=== PATIENT | female | born 1990 | race Caucasian/White ===

== ENCOUNTER 2021-07-18 09:20 | Emergency (ER) | payer MEDICARE, SELFPAY ==
[2021-07-18 09:33] VITALS: BP 153/94; PULSE 98; RESP 18; TEMP 36.8; O2SAT 98; BMI 28.3
--- NOTE | 2021-07-18 09:53 | CT_ITS ---
WS: [id number] CT HEAD NONCONTRAST HISTORY: headache, prior surgeries TECHNIQUE: Contiguous axial imaging performed through the brain in 2.5 mm imaging. Bone and soft tiss ue windows. Sagittal and coronal reformats reviewed. All CT scans at [facility] use at ast one of these dose optimization techniques: automated exposure control; mA and/or kV adjustment pe r patient size (includes targeted exams where dose is matched to clinical indication); or iterative r econstruction. DLP: 939.34 mGy.cm COMPARISON: None available. No acute intracranial hemorrhage, midline shift or mass effect. Mild atrophy. Prior infarct involving the external capsule on the RIGHT with extension to the RIGHT c audate. There is an additional small lacunar infarct or prominent perivascular space involving the po sterior RIGHT parietal lobe. Additional lacunar infarct in the RIGHT thalamus. Ventricles: Normal size with no hydrocephalus. Paranasal sinuses: As visualized are clear. Mastoid air cells: Well pneumatized. Calvarium and scalp: Skull is intact with no soft tissue edema or swelling. CT/CT head wo con* [id number] IMPRESSION: 1. No acute intracranial hemorrhage or edema. 2. Prior infarcts along the RIGHT external capsule, caudate head and RIGHT star lamus.
== END 2021-07-18 13:25 | disposition left against medical advice (07) ==
PROVIDERS: Emergency Provider Emergency Medicine; PCP Family Medicine
DX: R51.9 Headache, unspecified (principal); Z53.21 Procedure and treatment not carried out due to patient leaving prior to being seen by health care provider
CPT/HCPCS: 70450

== ENCOUNTER 2021-07-25 13:02 | Outpatient (CLI) | payer MEDICARE, SELFPAY ==
--- NOTE | 2021-07-25 13:00 | MR_ITS ---
WS: [id number] MRI HEAD WITH CONTRAST TECHNIQUE: Sagittal T1, T2 axial, T2 axial FLAIR, axial susceptibility weighted imaging, axial diffus ion weighted images, and coronal T2 images were obtained. Pre and post-T1 axial and post T1 coronal i mages. ADC and FSPGR images. CLINICAL INFORMATION: R25.1 - Tremor, unspecified COMPARISON: Head CT July 18, 2021 FINDINGS: No evidence of restricted diffusion to suggest acute ischemia. Ventricular system and basal cisterns are patent. Evidence of chronic ischemia in the right mantilla radiata extending into the internal capsule and exte rnal capsule with associated encephalomalacia and gliosis. This has a chronic long-standing appearanc e. No other suspicious intracranial signal abnormalities. Normal posterior fossa. Normal vascular pippa w voids at the skull base. No extra-axial fluid collections. No evidence of mass or mass effect. Para nasal sinuses and mastoid air cells are well aerated. Normal posterior nasopharynx. Visualized orbits are normal. Normal optic chiasm and pituitary infundibulum. Cavernous sinuses and M kale's cave are normal in appearance. Temporal lobes and hippocampal formations are normal in appear ance. No hemosiderin on susceptibly weighted images. No abnormal intracranial enhancement. Normal visualize d dural venous sinuses. MR/MR head wo/w con [id number] IMPRESSION: 1. No evidence of restricted diffusion to suggest acute ischemia. 2. Chronic infarct with encephalomalacia and gliosis involving the right coron a radiata extending into the right internal capsule has a long-standing chronic appearance. 3. No other suspicious intracranial signal normalities. 4. No abnormal intracranial enhancement. 5. No hemosiderin on susceptibly weighted images. 6. No other significant findings.
[2021-07-25] MEDS: gadobenate dimeglumine 20 mL vial IV (13:53)
== END 2021-07-25 13:03 | disposition home or self-care (01) ==
PROVIDERS: PCP Registered Nurse; Visit Provider Registered Nurse
DX: R25.1 Tremor, unspecified (principal); I63.9 Cerebral infarction, unspecified; G93.89 Other specified disorders of brain
CPT/HCPCS: 70553; A9577

== ENCOUNTER → 2021-07-29 09:18 | Outpatient (BNVA) | payer MEDICARE, SELFPAY | PROVIDERS: PCP Registered Nurse; Visit Provider Registered Nurse | DX: G24.9 Dystonia, unspecified (principal) | CPT/HCPCS: 80053; 80061; 84443; 85025; 85651; 86038; 86141 ==

== ENCOUNTER 2021-10-06 10:35 | Emergency (ER) | payer MEDICARE, SELFPAY ==
[2021-10-06 10:47] VITALS: BP 151/89; PULSE 74; RESP 16; TEMP 36.9; O2SAT 99; BMI 28.2
--- NOTE | 2021-10-06 11:01 | W.ED.NEUROSD ---
HPI - Neuro Symptoms/Deficit General: Chief Complaint: Neuro Symptoms/Deficit Stated Complaint: TREMORS, SEIZURE LIKE ACTIVITY Time Seen by Provider: 10/06/21 10:39 History of Present Illness: HPI Narrative: 30-year-old female presents emergency room via EMS. She has had tremors for several months. She has intermittent tremors in her neck with rhythmic contractions with slight turning to the right and sidebending to the left. She also has rhythmic leg movements in both upper extremities. She was evaluated at other hospitals as well as at neurology. They had thought she was having what sounds like a partial complex seizure and start her on Trileptal. She has a history of brain injury at . Since starting the Trileptal she is actually noticed an increase in her tremors was before it was only on one side now it is on both sides. She denies any other problems at this time. She not had any fever sweats chills chest pain abdominal pain dysuria urgency or frequency vomiting or diarrhea. Onset (ago): month(s) Location: left arm and right arm Severity: mild Relieving factors: none Exacerbating factors: none Context: change in medication On Anticoagulants: No Associated symptoms: Deny chest pain, cough, diaphoresis, fevers/chills, headache(s), anorexia, malaise, nausea, seizures, short of breath, syncope, tingling, vertigo, vomiting or weakness Treatments Prior to Arrival: none Review of Systems Const: Denies: malaise or diaphoresis ENMT: Denies: throat pain, ear or mastoid pain, nasal discharge or nasal congestion Card: Denies: chest pain or syncope Resp: Denies: dyspnea, productive cough or non-productive cough GI: Denies: nausea or vomiting : Denies: flank pain, difficulty voiding, dysuria, urinary frequency or urinary urgency Skin/Breast: Denies: rash or pruritus Neuro: Denies: headache(s) or vertigo PFSH ED PFSH: Medical History Basal ganglia stroke right side Depression with anxiety Surgical History History of hysterectomy for benign disease still has right ovary Family History Mother Diabetes Social History Quit status (tobacco): quit date established Planned quit date: 03/24/21 Alcohol intake: never Adopted: No Caregiver/support person: No Lives independently: No service: No Current occupational status: unemployed Sexually active: Yes Current gender identity: Female Physical Exam Const: COMMON NORMALS: no acute distress GENERAL APPEARANCE: cooperative and comfortable ORIENTATION/CONSCIOUSNESS: Yes awake, Yes oriented to person, Yes oriented to place and Yes oriented to time HENMT: COMMON NORMALS: normocephalic, atraumatic and hearing grossly normal bilaterally HEAD & SCALP: normocephalic and atraumatic Neck/C-Spine: COMMON NORMALS: no JVD Resp: COMMON NORMALS: normal respiratory effort, No retractions, No use of accessory muscles and clear to auscultation bilaterally AUSCULTATION: clear to auscultation bilaterally Cardio: COMMON NORMALS: no JVD, regular rate, regular rhythm and No murmurs present (Cardio) RATE: regular rate RHYTHM: regular rhythm GI: COMMON NORMALS: Soft to palpation and No hepatosplenomegaly present AUSCULTATION: Yes normoactive bowel sounds PALPATION: Yes Soft to palpation, No Tenderness to palpation present (GI), No Guarding due to palpation present (GI) and Yes No hepatosplenomegaly present Extremity: COMMON NORMALS: normal to inspection, capillary refill normal, no clubbing, cyanosis or edema, no calf tenderness and no pedal edema Neuro: SENSORIUM/ORIENTATION: Yes oriented to person, Yes oriented to place and Yes oriented to time Skin: COMMON NORMALS: no rashes or lesions noted GENERAL SKIN EXAM: no rashes or lesions noted Course Vital Signs: Vital signs: Vital Signs Temperature 98.5 F 10/06/21 13:48 Pulse Rate 67 10/06/21 13:48 Respiratory Rate 17 10/06/21 13:48 Blood Pressure 130/69 10/06/21 13:48 Pulse Oximetry 98 10/06/21 13:48 MDM - Neuro Symptoms/Deficit MDM Narrative: Medical decision making narrative: Called and discussed with the neurology clinic she seen previously. I went to discuss with the patient discharge instructions she stated she is not started increasing her oxcarbazepine. She was taking 300 mg twice a day. She was supposed to go to 600 twice a day but she felt like since she started her symptoms got worse so she had not gone out. Initially she did told me that she was doing 600 mg twice a day. We did not ever go ahead and get make the increase to 600 twice daily. Follow-up with her regular neurology clinic next week return if has problems with Lab Data: Labs: Lab Results 10/06/21 10/06/21 10/06/21 11:49 11:49 11:49 WBC 7.2 10^3/uL 10^3/ uL (4.0-10.0) RBC 3.86 10^6/uL L 10 ^6/uL (4.1-5.3) Hgb 12.3 g/dL g/dL (11.5-15.3) Hct 36.0 % L % (37.0-47.0) MCV 93.3 fl fl (81-99) MCH 31.9 pg pg (28.0-34.0) MCHC 34.2 g/dL g/dL (30.0-36.0) RDW 12.5 % % (12.1-15.1) Plt Count 234 10^3/cmm 10^3 /cmm (130-400) MPV 9.6 fL fL (7.4-10.4) Neut % (Auto) 67.0 % % Lymph % (Auto) 20.7 % % Peach % (Auto) 9.4 % % Eos % (Auto) 2.1 % % Baso % (Auto) 0.7 % % Neut # (Auto) 4.79 10^3/uL 10^3 /uL (1.8-7.7) Lymph # (Auto) 1.5 10^3/uL 10^3/ uL (0.8-4.8) Peach # (Auto) 0.7 10^3/uL 10^3/ uL (0.2-0.9) Eos # (Auto) 0.2 10^3/uL 10^3/ uL (0.0-0.8) Baso # (Auto) 0.1 10^3/uL 10^3/ uL (0.0-0.1) Nucleated RBC % (a uto) 0 % % Nucleated RBCs # 0.0 /100WBC /100W BC Sodium 132 mmol/L L mmol /L (136-145) Potassium 4.2 mmol/L mmol/L (3.5-5.1) Chloride 99 mmol/L mmol/L (98-107) Carbon Dioxide 24 mmol/L mmol/L (22-29) Anion Gap 13.2 (5-19) BUN 8 mg/dL mg/dL (6-20) Creatinine 0.7 mg/dL mg/dL (0.5-0.9) GFR Calculation 97.6 mL/min mL/mi n (90-130) Glucose 92 mg/dL mg/dL (65-115) Calculated Osmolal ity 272 mOsm/kg L mOs m/kg (285-295) Calcium 8.5 mg/dL mg/dL (8.5-10.5) Magnesium 1.9 mg/dL mg/dL (1.7-2.3) Total Bilirubin 0.2 mg/dL mg/dL (0.15-1.2) AST 16 U/L U/L (0-32) ALT 13 U/L U/L (0-33) Alkaline Phosphata se 52 IU/L IU/L (35-105) Creatine Kinase 52 U/L U/L (26-192) Total Protein 6.0 g/dL L g/dL (6.6-8.7) Albumin 3.6 g/dL g/dL (3.5-5.2) Globulin 2.4 g/dL g/dL (1.3-4.6) HCG, Qual Negative (Negative) Urine Color Urine Appearance Urine pH Ur Specific Gravit y Urine Protein Urine Glucose (UA) Urine Ketones Urine Blood Urine Nitrate Urine Bilirubin Prot Sulfosalicyli c Acd Urine Urobilinogen Ur Leukocyte Vane ase 10/06/21 11:50 WBC RBC Hgb Hct MCV MCH MCHC RDW Plt Count MPV Neut % (Auto) Lymph % (Auto) Peach % (Auto) Eos % (Auto) Baso % (Auto) Neut # (Auto) Lymph # (Auto) Peach # (Auto) Eos # (Auto) Baso # (Auto) Nucleated RBC % (a uto) Nucleated RBCs # Sodium Potassium Chloride Carbon Dioxide Anion Gap BUN Creatinine GFR Calculation Glucose Calculated Osmolal ity Calcium Magnesium Total Bilirubin AST ALT Alkaline Phosphata se Creatine Kinase Total Protein Albumin Globulin HCG, Qual Urine Color Yellow (Yellow) Urine Appearance Clear (CLEAR) Urine pH 8 H (5-7) Ur Specific Gravit y 1.005 (1.005-1.030) Urine Protein Neg (Negative) Urine Glucose (UA) Norm (Normal) Urine Ketones Negative (Negative) Urine Blood Neg (Negative) Urine Nitrate Negative (Negative) Urine Bilirubin Neg (Negative) Prot Sulfosalicyli c Acd Positive (Negative) Urine Urobilinogen Norm mg/dL mg/dL (Negative) Ur Leukocyte Vane ase Negative (Negative) Discharge Plan Discharge Patient Disposition: Home Clinical Impression: Complex partial seizure Condition: Stable Prescriptions: Changed oxcarbazepine 300 mg tablet 600 mg PO BID Qty: 0 RF: 0 No Action ondansetron HCl 4 mg tablet 4 mg PO DAILY PRN (Reason: nausea and vomiting) 10 Days Qty: 10 RF: 0 baclofen 10 mg tablet 10 mg PO BID 30 Days Qty: 60 RF: 2 diazepam 5 mg tablet 5 mg PO TID PRN (Reason: dystonia) 30 Days Qty: 75 RF: 0 Prozac 20 mg capsule 20 mg PO BEDTIME RF: 0 Discharge Orders: Discharge ED (Routine); Ordered 10/06/21 Ordered By: Blas Urbano Referrals: Arlet Avila, [employer] [facility] [Primary Care Provider] - Discharge Diet: Usual diet Discharge Activity: Resume usual activity Patient Instructions: Opioid Safety Activity Restrictions/Additional Instructions: Call your neurology office to set up a follow-up appointment later this week. Coding Level of Care Code ED Blocking Machine Operator Second for Marielos Fwgallo Exam Comprehensive
[2021-10-06 11:32] VITALS: BP 127/76; PULSE 70; RESP 18; TEMP 37.2; O2SAT 98
[2021-10-06 11:59] LABS: Basophils # 0.1 10^3/uL (0.0-0.1); Basophils % 0.7 %; Eosinophils # 0.2 10^3/uL (0.0-0.8); Eosinophils % 2.1 %; Hemoglobin 12.3 g/dL (11.5-15.3); Lymphocytes # 1.5 10^3/uL (0.8-4.8); Lymphocytes % 20.7 %; Mean Corpuscular HGB Conc 34.2 g/dL (30.0-36.0); Mean Corpuscular Hemoglobin 31.9 pg (28.0-34.0); Mean Corpuscular Volume 93.3 fl (81-99); Mean Platelet Volume 9.6 fL (7.4-10.4); Monocytes # 0.7 10^3/uL (0.2-0.9); Monocytes % 9.4 %; Neutrophils # 4.79 10^3/uL (1.8-7.7); Nucleated Red Blood Cells % 0 %; Platelet Count 234 10^3/cmm (130-400); Red Blood Count 3.86 10^6/uL (4.1-5.3); Red Cell Distribution Width 12.5 % (12.1-15.1); White Blood Count 7.2 10^3/uL (4.0-10.0)
[2021-10-06 11:59] LABS: Add Urine Microscopic? NO; Charge for UA Resulting for Rev
[2021-10-06 12:06] LABS: Bilirubin Urine Neg (Negative); Blood Urine Neg (Negative); Glucose Urine UA Norm (Normal); Ketones Urine Negative (Negative); Leukocyte Esterase Urine Negative (Negative); Nitrate Urine Negative (Negative); Protein Urine Neg (Negative); Specific Gravity, Urine 1.005 (1.005-1.030); Sulfosalicylic Acid Urine Positive (Negative); Urine Appearance Clear (CLEAR); Urine Color Yellow (Yellow); Urobilinogen Urine Norm (Negative); pH Urine 8 (5-7)
[2021-10-06 12:32] LABS: Alanine Aminotransferase 13 U/L (0-33); Albumin Level 3.6 g/dL (3.5-5.2); Alkaline Phosphatase 52 IU/L (35-105); Anion Gap 13.2 (5-19); Aspartate Amino Transferase 16 U/L (0-32); Blood Urea Nitrogen 8 mg/dL (6-20); Calcium 8.5 mg/dL (8.5-10.5); Carbon Dioxide 24 mmol/L (22-29); Chloride 99 mmol/L (98-107); Creatine Phosphokinase 52 U/L (26-192); Globulin 2.4 g/dL (1.3-4.6); Glomerular Filtration Rate 97.6 mL/min (90-130); Glucose 92 mg/dL (65-115); Magnesium 1.9 mg/dL (1.7-2.3); Osmolality Calculated 272 mOsm/kg (285-295); Potassium 4.2 mmol/L (3.5-5.1); Sodium 132 mmol/L (136-145); Total Bilirubin 0.2 mg/dL (0.15-1.2)
[2021-10-06 12:37] VITALS: BP 125/68; PULSE 73; RESP 18; O2SAT 98
[2021-10-06 13:09] LABS: HCG, Serum Qual Negative (Negative)
[2021-10-06] MEDS: LORazepam 2 mg/mL INJ 1 mL 1 MG IVP (13:26)
[2021-10-06 13:48] VITALS: BP 130/69; PULSE 67; RESP 17; TEMP 36.9; O2SAT 98
[2021-10-08 21:52] LABS: Oxcarbazepine Metabolite 10.2 mcg/mL (8.0-35.0)
== END 2021-10-06 13:50 | disposition home or self-care (01) ==
PROVIDERS: Emergency Provider Family Medicine; PCP Registered Nurse
DX: G40.209 Localization-related (focal) (partial) symptomatic epilepsy and epileptic syndromes with complex partial seizures, not intractable, without status epilepticus (principal); Z86.73 Personal history of transient ischemic attack (TIA), and cerebral infarction without residual deficits; Z87.891 Personal history of nicotine dependence
CPT/HCPCS: 80053; 80183; 81003; 82550; 83735; 84703; 85025; 96374; 99283; J2060

== ENCOUNTER → 2022-08-07 15:22 | Outpatient (BNVA) | payer MEDICARE, SELFPAY | PROVIDERS: PCP Registered Nurse; Visit Provider Nurse Practitioner Women's Health | DX: N89.8 Other specified noninflammatory disorders of vagina (principal); B37.9 Candidiasis, unspecified | CPT/HCPCS: 87070; 87205 ==

== ENCOUNTER → 2022-11-26 10:33 | Outpatient (BNVA) | payer MEDICARE, SELFPAY | PROVIDERS: PCP Registered Nurse; Visit Provider Registered Nurse | DX: R39.9 Unspecified symptoms and signs involving the genitourinary system (principal) | CPT/HCPCS: 81000 ==

== ENCOUNTER → 2022-12-17 08:55 | Outpatient (BNVA) | payer MEDICARE, SELFPAY | PROVIDERS: PCP Registered Nurse; Visit Provider Registered Nurse | DX: N39.0 Urinary tract infection, site not specified (principal) | CPT/HCPCS: 81000 ==

== ENCOUNTER 2023-01-21 12:41 | Outpatient (CLI) | payer MEDICARE, SELFPAY ==
--- NOTE | 2023-01-21 13:00 | US_ITS ---
WS: [id number] RENAL ULTRASOUND URINARY BLADDER ULTRASOUND HISTORY: R10.9 - Unspecified abdominal pain COMPARISON: None available. TECHNIQUE: 2-D and color Doppler imaging of the kidney submitted. Right kidney: 9.9 cm x 4.5 cm x 4.7 cm. Normal echogenicity with no hydronephrosis or mass. Left kidney: 11.2 cm x 3.9 cm x 4.2 cm. Normal echogenicity with no hydronephrosis or mass. Aorta: Normal. Urinary Bladder: Normally distended urinary bladder. Prevoid volume 255 mL. There is no bladder wall thickening or mass. US/US renal BI* [id number] IMPRESSION: Normal renal ultrasound. Normal urinary bladder.
== END 2023-01-21 12:42 | disposition home or self-care (01) ==
PROVIDERS: PCP Registered Nurse; Visit Provider Registered Nurse
DX: R10.9 Unspecified abdominal pain (principal); R39.11 Hesitancy of micturition
CPT/HCPCS: 76770; 81000

== ENCOUNTER → 2023-02-09 15:07 | Outpatient (BNVA) | payer MEDICARE, SELFPAY | PROVIDERS: PCP Registered Nurse; Visit Provider Registered Nurse | DX: R39.9 Unspecified symptoms and signs involving the genitourinary system (principal) | CPT/HCPCS: 80053; 81000; 85025 ==

== ENCOUNTER 2024-05-19 12:57 | Outpatient (CLI) | payer MEDICARE, SELFPAY ==
--- NOTE | 2024-05-19 13:06 | XR_ITS ---
WS: [id number] Exam: XR foot RT min 3V* [id number] Date/Time of Exam: 05/19/2024 1:14 PM Reason For Exam: R MIDFOOT PAIN No acute fracture. The joints are well-maintained. No soft tissue foreign bodies are identified. XR/XR foot RT min 3V* [id number] IMPRESSION: 1. Negative RIGHT foot.
== END 2024-05-19 12:58 | disposition home or self-care (01) ==
PROVIDERS: PCP Registered Nurse; Visit Provider Nurse Practitioner Family
DX: M79.671 Pain in right foot (principal)
CPT/HCPCS: 73630

== ENCOUNTER → 2024-06-19 15:18 | Outpatient (BNVA) | payer MEDICARE, SELFPAY | PROVIDERS: PCP Registered Nurse; Visit Provider Podiatrist Foot & Ankle Surgery | DX: M79.671 Pain in right foot (principal); M19.071 Primary osteoarthritis, right ankle and foot | CPT/HCPCS: 73630; 99203 ==

== ENCOUNTER 2024-08-21 10:22 | Outpatient (CLI) | payer MEDICARE, SELFPAY ==
--- NOTE | 2024-08-21 10:39 | XR_ITS ---
WS: [id number] Exam: XR knee RT 3V* [id number] Date/Time of Exam: 08/21/2024 10:40 AM Reason For Exam: M25.569 - Pain in unspecified knee No fracture or dislocation. The joint compartments are preserved. Normal soft tissues. XR/XR knee RT 3V* [id number] IMPRESSION: 1. Negative RIGHT knee.
== END 2024-08-21 10:23 | disposition home or self-care (01) ==
PROVIDERS: PCP Registered Nurse; Visit Provider Registered Nurse
DX: M25.569 Pain in unspecified knee (principal); W10.8XXA Fall (on) (from) other stairs and steps, initial encounter
CPT/HCPCS: 73562

== ENCOUNTER → 2024-09-04 09:15 | Outpatient (BNVA) | payer MEDICARE, SELFPAY | PROVIDERS: PCP Registered Nurse; Visit Provider Podiatrist Foot & Ankle Surgery | DX: M25.371 Other instability, right ankle; M76.71 Peroneal tendinitis, right leg; S93.401A Sprain of unspecified ligament of right ankle, initial encounter; X58.XXXA Exposure to other specified factors, initial encounter; M25.561 Pain in right knee | CPT/HCPCS: 73560; 73565; 73610; 99213 ==

== ENCOUNTER 2024-09-04 12:18 | Outpatient (CLI) | payer MEDICARE, SELFPAY | END 2024-09-04 12:19 | disposition home or self-care (01) | LOC: SPT 12:18 | PROVIDERS: PCP Registered Nurse; Visit Provider Nurse Practitioner | DX: Z46.89 Encounter for fitting and adjustment of other specified devices (principal); M25.561 Pain in right knee | CPT/HCPCS: 97760; L1812 ==

== ENCOUNTER 2024-09-11 15:43 | Outpatient (CLI) | payer MEDICARE, SELFPAY ==
--- NOTE | 2024-09-11 16:00 | MR_ITS ---
WS: [id number] MRI RIGHT KNEE HISTORY: Positive Nora's sign COMPARISON: Radiograph 09/04/2024 Anterior cruciate ligament: Intact. Posterior cruciate ligament: Intact. Medial collateral ligament: Intact. Posterior lateral corner structures: Intact. Medial menisci: Intact. Normal signal, size and shape. Lateral meniscus: Intact. Normal signal, size and shape. Extensor mechanism: Distal quadriceps tendon and patellar tendons are intact. Fluid and soft tissue: No joint effusion. No May's cyst. Osseous and articular structures: Patellofemoral compartment: Very slight lateral subluxation of the patella. Increased T2 signal in th e soft tissues in the lateral most patellofemoral junction. Contusion type injury. Minimal focal invo lvement of the cartilage along the posterior lateral patellar facet. Small amount of edema anterior t o the infrapatellar and superior patellar tendon. Medial compartment: Normal. Lateral compartment: Normal. MR/MR knee RT wo con* [id number] IMPRESSION: 1. Normal ACL. 2. Mild soft tissue contusion involving the lateral most patellofemoral articu lation. There is narrowing of the lateral patellofemoral articulation probably due to very slight subluxation of the patella. Minimal involvement of the carti scottie. 3. Mild soft tissue contusion over the inferior patella and proximal patellar tendon.
== END 2024-09-11 15:44 | disposition home or self-care (01) ==
LOC: RAD 15:44
PROVIDERS: PCP Registered Nurse; Visit Provider Nurse Practitioner
DX: S80.01XA Contusion of right knee, initial encounter (principal); X58.XXXA Exposure to other specified factors, initial encounter
CPT/HCPCS: 73721

== ENCOUNTER → 2024-09-18 15:14 | Outpatient (BNVA) | payer MEDICARE, SELFPAY | PROVIDERS: PCP Registered Nurse; Visit Provider Nurse Practitioner | DX: M23.51 Chronic instability of knee, right knee (principal); S80.01XA Contusion of right knee, initial encounter; X58.XXXA Exposure to other specified factors, initial encounter | CPT/HCPCS: 99214 ==

== ENCOUNTER → 2024-10-30 15:45 | Outpatient (BNVA) | payer MEDICARE, SELFPAY | PROVIDERS: PCP Registered Nurse; Visit Provider Nurse Practitioner | DX: M23.51 Chronic instability of knee, right knee; S80.01XD Contusion of right knee, subsequent encounter; X58.XXXD Exposure to other specified factors, subsequent encounter | CPT/HCPCS: 99213 ==

== ENCOUNTER → 2025-04-30 08:36 | Outpatient (BNVA) | payer MEDICARE, SELFPAY | PROVIDERS: PCP Registered Nurse; Visit Provider Registered Nurse | DX: N39.0 Urinary tract infection, site not specified (principal) | CPT/HCPCS: 81000; 87086 ==

== ENCOUNTER → 2025-05-17 15:08 | Outpatient (BNVA) | payer MEDICARE, SELFPAY | PROVIDERS: PCP Registered Nurse; Visit Provider Registered Nurse | DX: M54.9 Dorsalgia, unspecified (principal) | CPT/HCPCS: 80048; 81000; 85025 ==

== ENCOUNTER 2025-05-28 15:40 | Outpatient (CLI) | payer MEDICARE, SELFPAY ==
--- NOTE | 2025-05-28 15:45 | USR_ITS ---
PROCEDURE INFORMATION: Exam: US Pelvis, Complete, Non-Obstetric Exam date and time: 05/28/2025 3:46 PM Age: 34 years old Clinical indication: Pelvic pain; Additional info: R10.2 - pelvic and perineal pain, has history of cyst TECHNIQUE: Imaging protocol: Transabdominal pelvic nonobstetric ultrasound. Complete exam. Real time ultrasound with image documentation. COMPARISON: US renal BI* [id number] 01/21/2023 1:00 PM FINDINGS: Uterus: Postsurgical changes related to hysterectomy. Right ovary/adnexa: Right ovarian follicles. No right adnexal mass. Preserved flow to the right ovary. Left ovary/adnexa: The left ovary is surgically removed. There is no left adnexal mass. Intraperitoneal space: No intraperitoneal fluid. Urinary bladder: Normal. US/US pelvic complete* [id number] IMPRESSION: As above.
== END 2025-05-28 15:41 | disposition home or self-care (01) ==
LOC: RAD 15:41
PROVIDERS: PCP Registered Nurse; Visit Provider Registered Nurse
DX: R10.2 Pelvic and perineal pain (principal); Z90.710 Acquired absence of both cervix and uterus; Z90.721 Acquired absence of ovaries, unilateral
CPT/HCPCS: 76856

== ENCOUNTER → 2025-07-04 10:25 | Outpatient (BNVA) | payer MEDICARE, SELFPAY | PROVIDERS: PCP Registered Nurse; Visit Provider Registered Nurse | DX: R10.2 Pelvic and perineal pain (principal) | CPT/HCPCS: 81000 ==

== ENCOUNTER → 2025-07-06 12:53 | Outpatient (BNVA) | payer MEDICARE, SELFPAY | PROVIDERS: PCP Registered Nurse; Visit Provider Nurse Practitioner Women's Health | DX: N89.8 Other specified noninflammatory disorders of vagina (principal); R10.2 Pelvic and perineal pain | CPT/HCPCS: 87255 ==